=== PATIENT | male | born 1975 | race Two or more races ===

== ENCOUNTER 2021-02-06 23:46 | Emergency (ER) | payer SELFPAY ==
[~2021-02-06] VITALS: Ht 157.5 cm; Wt 59.0 kg
[2021-02-07] MEDS ORDERED: CEPHALEXIN MONOHYDRATE 500 MG CAPSULE PO ONE (01:00)
[2021-02-07] MEDS ORDERED: IBUPROFEN 800 MG TABLET PO ONE (01:00)
[2021-02-07] MEDS ORDERED: SULFAMETHOX/TRIMETH DS 800-160 MG/TABLET PO ONE (01:00)
[2021-02-07 01:15] VITALS: BP 110/70
[2021-02-07] MEDS ORDERED: PERTUSS(ACELL),DIPH,TET VAC/PF 0.5 ML SYRINGE IM. ONE (01:15)
== END 2021-02-07 01:24 | disposition home or self-care (01) ==
LOC: EMS 23:47
DX: L02.415 Cutaneous abscess of right lower limb (principal); L03.115 Cellulitis of right lower limb
CPT/HCPCS: 90471; 90715; 99284